=== PATIENT | male | born 1965 | race Caucasian/White ===

== ENCOUNTER → 2024-07-16 | Day surgery (SDC) | payer OTHER ==
[~2024-07-16] VITALS: Ht 165.1 cm; Wt 67.7 kg
[~2024-07-16] MED LIST: BENZOCAINE 20% 50 MCG/SPRAY 57 GM ONE; BUDE10.22 PO; FLUT16H NASAL; FentaNYL CITRATE PF 100 MCG/2 ML VIAL ONE; LIDOCAINE 2% 11 ML JELLY ONE; LIDOCAINE 4% 50 ML SOLUTION ONE; MIDAZOLAM HCL 2 MG/2 ML VIAL ONE; MONT-40 PO; MethylPREDNISolone SOD SUCC 125 MG/2 ML VIAL ONE; PANT40TA54 PO; SIMV-43 PO; SODIUM CHLORIDE 0.9% 1,000 ML ONE
[2024-07-16] MEDS: SODIUM CHLORIDE 0.9% 1,000 ML IV ONE (07:54)
[2024-07-16 10:18] VITALS: PULSE 60; RESP 18; O2SAT 100
[2024-07-16] MEDS: MethylPREDNISolone SOD SUCC 125 MG/2 ML VIAL IVP ONE (10:41)
== END | disposition still patient (30) ==
LOC: SURGERY 06:39
PROVIDERS: ATTEND Internal Medicine Critical Care Medicine
DX: R05.3 Chronic cough (principal); R04.2 Hemoptysis; J38.4 Edema of larynx; B37.0 Candidal stomatitis; Z98.890 Other specified postprocedural states; Z79.899 Other long term (current) drug therapy
CPT/HCPCS: 31623; 87206; 87101; 87220; 87070; 88108; 31624; 71045; 87015; J3010; J2250; J2919; J7030; Z7610